=== PATIENT | male | born 1970 | race Hispanic/Latino ===

== ENCOUNTER 2020-04-21 20:35 | Emergency (ER) | payer OTHER ==
[~2020-04-21] VITALS: Ht 182.9 cm; Wt 131.5 kg
[2020-04-21] MEDS ORDERED: KETOROLAC TROMETHAMINE 30 MG/ML VIAL IV STA (21:40)
[2020-04-21] MEDS ORDERED: ACETAMINOPHEN 325 MG TAB PO ONE (21:45)
[2020-04-21] MEDS ORDERED: SODIUM CHLORIDE 0.9% 1000ML 1,000 ML IV SCH (21:45)
--- OUTSIDE RECORDS SUMMARY | 2020-04-21 21:56 | XMS REPORT | Clinical Summary ---
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
[2020-04-21] MEDS ORDERED: KETOROLAC TROMETHAMINE 30 MG/ML VIAL ONE (22:05)
[2020-04-21] MEDS ORDERED: SODIUM CHLORIDE 0.9% 1000ML 1,000 ML ONE (22:05)
[2020-04-21] MEDS ORDERED: ACETAMINOPHEN 325 MG TAB ONE (22:05)
--- NOTE | 2020-04-21 22:26 | Emergency Department Note ---
History of Present Illnes History of Present Illness Chief Complaint: Abdominal Complaints History of Present Illness This is a 49 year old obese male, with history of pre-diabetes and polycythemia, who presents with a 5 day history of progressively worsening left lower abdominal pain. The pain has become a constant dull ache, with intermittent episodes of sharp, stabbing pain, that does not radiate. Certain movements seem to make the pain a bit worse. Pt typically has a BM 3x/day, and he has only had 2 BMs daily, for the past 2 days, without blood or mucous, and no diarrhea. He denies any N/V or known fever, but he states that he felt cold last night and then broke out into a sweat. He has also not had any dysuria, hematuria or urgency. Pt denies a history of previous similar pain. He states that he had several colonoscopies @ 7-10 years ago, when he was found to be anemic, and he states that these were "normal." He denies any history of diverticulosis. 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 Required: No Onset (how long ago): day(s) Location: LLQ Quality: achy, crampy, sharp and stabbing Radiation: Reports non-radiation Severity: moderate Onset quality: gradual Duration (how long): day(s) (5) Timing of current episode: constant Progression: worsening Chronicity: new Context: Reports recent travel (works in [facility], and commutes back and forth ); Denies recent illness, Denies trauma/injury, Denies non-compliance w/ medications Relieving factors: none Exacerbating factors: none Associated symptoms: Reports fever/chills; Denies chest pain, Denies cough, Denies headaches, Denies loss of appetite, Denies malaise, Denies nausea/vomiting Treatments prior to arrival: none Past Medical/Family History Physician Review I have reviewed the patient's past medical and family history. Any updates have been documented here. Past Medical History Recent Fever: No Clinical Suspicion of Infectio: No New/Unexplained Change in Ment: No Other Medical History: Polycythemia Pre-diabetes Past Surgical History: None Social History Smoking Cessation: Never Smoker Alcohol Use: Occasional Any Illegal Drug Use: No TB Exposure/Symptoms: No Physically hurt or threatened: No Family History Family history of heart diseas: No Other Last Tetanus: < 5 years Any Pre-Existing Lines (PICC,: No Is patient up to date on immun: Yes Review of Systems Review of Systems Constitutional: Reports chills, Reports fever; Denies malaise, Denies weakness EENTM: Reports no symptoms Cardiovascular: Denies chest pain, Denies palpitations Respiratory: Denies cough, Denies dyspnea Gastrointestinal: Reports abdominal pain; Denies constipation, Denies diarrhea, Denies nausea, Denies vomiting Genitourinary: Denies dysuria, Denies frequency, Denies hematuria Musculoskeletal: Denies back pain, Denies joint pain, Denies joint swelling Integumentary: Denies change in color, Denies rash Neurological: Denies headache Psychological: Reports no symptoms Hematological/Lymphatic: Reports no symptoms Review of other systems: All other systems negative Physical Exam Related Data Allergies: Coded Allergies: No Known Drug Allergies (Verified Allergy, Unknown, 04/21/20) Triage Vital Signs Vital Signs Date Time Temp Pulse Resp B/P (MAP) Pulse Ox O2 Delivery O2 Flow Rate FiO2 04/21/20 20:55 100.0 100 18 145/95 97 Room Air Vital signs reviewed: Yes Physical Exam CONSTITUTIONAL Constitutional: Present well-developed, Present well-nourished, Present obese; Absent distressed, Absent ill appearing HENT HENT: Present normocephalic, Present atraumatic, Present oropharynx clear/moist, Present oropharynx normal, Present nose normal HENT L/R: Present left ext ear normal, Present right ext ear normal EYES Eyes: Reports PERRL, Reports conjunctivae normal, Reports EOM normal NECK Neck: Present ROM normal, Present supple, Present cervical adenopathy; Absent JVD PULMONARY Pulmonary: Present effort normal, Present breath sounds normal CARDIOVASCULAR Cardiovascular: Present regular rhythm, Present heart sounds normal, Present capillary refill normal, Present normal rate GASTROINTESTINAL Abdominal: Present soft, Present bowel sounds normal, Present tender (LLQ and suprapubic area ttp); Absent distension, Absent guarding, Absent rebound, Absent left CVA tenderness, Absent right CVA tenderness GENITOURINARY Genitourinary: Present exam deferred SKIN Skin: Present warm, Present dry; Absent rash MUSCULOSKELETAL Musculoskeletal: Present ROM normal; Absent tenderness NEUROLOGICAL Neurological: Present alert, Present oriented x 3, Present no gross motor or sensory deficits PSYCHOLOGICAL Psychological: Present mood/affect normal, Present judgement normal Results Laboratory Lab results reviewed: Yes Laboratory comments [place] - nl, except for Cl = 97; LFT - ALT = 63, AST = 53, GGT = 117; UA - negative except for Uro = 2.0; CBC - WBC = 11.53, H/H = 16.6/51.6; Imaging Imaging results reviewed: Yes Impressions Req #: [id number] Adm Physician: Ordered by: ELIANA FAGAN MD Report #: [id number] Location: [facility] Room/Bed: Procedure: [id number] HOPD/CT ABD/PEL WITH CONTRAST-HOPD Exam Date: 04/21/20 Exam Time: 2250 REPORT STATUS: Signed EXAM: CT Abdomen and Pelvis WITH contrast INDICATION: Left lower quadrant abdominal pain COMPARISON: None. TECHNIQUE: Abdomen and pelvis were scanned utilizing a multidetector helical scanner from the lung base to the pubic symphysis after administration of IV contrast. Coronal and sagittal reformations were obtained. Routine protocol was performed. Scan was performed when during portal venous phase. IV CONTRAST: 100 mL of Isovue 370 ORAL CONTRAST: None COMPLICATIONS: None RADIATION DOSE: Total DLP: 871 mGy*cm Estimated effective dose: (DLP x 0.015 x size factor) mSv CTDIvol has been reviewed. It is below the limits set by the Radiation Protocol Committee (RPC). Dose modulation, iterative reconstruction, and/or weight based adjustment of the mA/kV was utilized to reduce the radiation dose to as low as reasonably achievable. FINDINGS: LINES and TUBES: None. LOWER THORAX: Unremarkable HEPATOBILIARY: Enlarged hypodense liver. No focal hepatic lesions. No biliary ductal dilation. GALLBLADDER: No radio-opaque stones or sludge. No wall thickening. SPLEEN: No splenomegaly. PANCREAS: No focal masses or ductal dilatation. ADRENALS: No adrenal nodules KIDNEYS/URETERS: Kidneys enhance symmetrically. No hydronephrosis. There are simple right renal cysts. No solid mass lesions. No stones. GI TRACT: Mild sigmoid wall thickening and pericolonic fat stranding with sigmoid diverticuli. Colonic diverticulosis. Appendix is normal. PELVIC ORGANS/BLADDER: Unremarkable. LYMPH NODES: No lymphadenopathy. VESSELS: Unremarkable. PERITONEUM / RETROPERITONEUM: No free air or fluid. BONES: Unremarkable. SOFT TISSUES: Unremarkable. IMPRESSION: Acute uncomplicated sigmoid diverticulitis. Recommend referral for colonoscopy. Hepatomegaly with hepatic steatosis. Signed by: Alyse Zimmerman DO on 04/21/2020 11:18 PM Dictated By: ALYSE ZIMMERMAN DO 17 Transcribed By: SHAYLA on 04/21/202317 COPY TO: ELIANA FAGAN MD~ Assessment & Plan Medical Decision Making MDM - Take ALL antibiotics, as prescribed. Take with food, or something on your stomach. - If the antibiotics cause nausea, you may need to take Ondansetron 4 mg, approximately 30 minutes before taking the antibiotics, to help with the nausea. - Follow-up with your PCP regarding this ER visit and diagnosis and for a referral to a Funeral Director And Embalmer for a colonoscopy, once this acute infection has resolved. - Follow the dietary information provided for treatment of "acute diverticulitis," which includes a clear liquid diet for the next 24 - 48 hours, and then advance to a "low residue" diet, as your symptoms are improving. - You may take the Tylenol #3 for pain, as needed. This can cause constipation, so watch out for this, and add a stool softener or Miralax, if needed. - RETURN to the ED, if you develop persistent fever, worsening abdominal pain, or nausea and vomiting with inability to keep fluids and medications down. Assessment & Plan Final Impression: (1) Diverticulitis of sigmoid colon (2) Abdominal pain (3) Fever Depart Disposition: HOME, SELF-CARE Last Vital Signs Date Time Temp Pulse Resp B/P (MAP) Pulse Ox O2 Delivery O2 Flow Rate FiO2 04/21/20 20:55 100.0 100 18 145/95 97 Room Air Home Meds Active Scripts Acetaminophen/Codeine* (TYLENOL # 3*) 1 Ea Tab, 1-2 TAB PO Q6H PRN for pain, #20 TAB 0 Refills Prov:ELIANA FAGAN MD 04/22/20 Ondansetron (ONDANSETRON ODT) 8 Mg Tab.rapdis, 4 MG PO Q6H PRN for nausea, #30 TAB 0 Refills Prov:ELIANA FAGAN MD 04/22/20 Ciprofloxacin Hcl (CIPRO) 500 Mg Tablet, 1 TAB PO BID for infection for 10 Days, #20 TAB 0 Refills Prov:ELIANA FAGAN MD 04/22/20 Metronidazole (FLAGYL) 500 Mg Tablet, 1-2 TAB PO TID for infection for 10 Days, #30 TAB 0 Refills Prov:ELIANA FAGAN MD 04/22/20 Medications in the ED Sodium Chloride 1,000 ml @ 0 mls/hr Q0M IV Last administered on 04/21/20at 22:07; Admin Dose 1,000 MLS/HR; Start 04/21/20 at 21:45; Stop 05/21/20 at 21:44 Ketorolac Tromethamine 30 mg ONCE STAT IV Last administered on 04/21/20at 22:05; Admin Dose 30 MG; Start 04/21/20 at 21:40; Stop 04/21/20 at 21:45; Status DC Acetaminophen 975 mg ONCE ONCE PO Last administered on 04/21/20at 22:07; Admin Dose 975 MG; Start 04/21/20 at 21:45; Stop 04/21/20 at 21:46; Status DC Ketorolac Tromethamine 30 mg STK-MED ONCE .ROUTE ; Start 04/21/20 at 22:05; Stop 04/21/20 at 21:58; Status DC Acetaminophen 975 mg STK-MED ONCE .ROUTE ; Start 04/21/20 at 22:05; Stop 04/21/20 at 21:59; Status DC Sodium Chloride 1,000 ml @ ud STK-MED ONCE .ROUTE ; Start 04/21/20 at 22:05; Stop 04/21/20 at 21:59; Status DC ELIANA FAGAN MD Apr 21, 2020 22:26
[2020-04-21] MEDS ORDERED: SODIUM CHLORIDE 0.9% 50ML 50 ML ONE (22:40)
[2020-04-21] MEDS ORDERED: IOPAMIDOL 370 MG/ML 200 ML INFUS..BTL INJ ONE (22:40)
[2020-04-21 22:58] LABS: BASOPHILS # (AUTO) 0.1 (0.0-0.1); BASOPHILS % 0.5 % (0.0-1.0); EOSINOPHILS # (AUTO) 0.2 (0.0-0.4); EOSINOPHILS % 1.4 % (0.0-6.0); HEMATOCRIT 51.6 % (38.2-49.6); HEMOGLOBIN 16.6 g/dL (14.0-18.0); LYMPHOCYTES % 16.9 % (18.0-39.1); MEAN CORPUSCULAR HEMOGLOBIN 28.8 pg (28-32); MEAN CORPUSCULAR HGB CONC 32.2 g/dL (31-35); MEAN CORPUSCULAR VOLUME 89.4 fL (81-99); MONOCYTES % 8.4 % (4.4-11.3); NEUTROPHILS # (AUTO) 8.3 (2.1-6.9); NEUTROPHILS % 72.4 % (38.7-80.0); PLATELET COUNT 239 x10e3/uL (140-360); RED BLOOD COUNT 5.77 x10e6/uL (4.3-5.7); RED CELL DISTRIBUTION WIDTH 13.4 % (11.7-14.4)
--- NOTE | 2020-04-21 23:21 | Diagnostic Imaging Report ---
EXAM: CT Abdomen and Pelvis WITH contrast INDICATION: Left lower quadrant abdominal pain COMPARISON: None. TECHNIQUE: Abdomen and pelvis were scanned utilizing a multidetector helical scanner from the lung base to the pubic symphysis after administration of IV contrast. Coronal and sagittal reformations were obtained. Routine protocol was performed. Scan was performed when during portal venous phase. IV CONTRAST: 100 mL of Isovue 370 ORAL CONTRAST: None COMPLICATIONS: None RADIATION DOSE: Total DLP: 871 mGy*cm Estimated effective dose: (DLP x 0.015 x size factor) mSv CTDIvol has been reviewed. It is below the limits set by the Radiation Protocol Committee (RPC). Dose modulation, iterative reconstruction, and/or weight based adjustment of the mA/kV was utilized to reduce the radiation dose to as low as reasonably achievable. FINDINGS: LINES and TUBES: None. LOWER THORAX: Unremarkable HEPATOBILIARY: Enlarged hypodense liver. No focal hepatic lesions. No biliary ductal dilation. GALLBLADDER: No radio-opaque stones or sludge. No wall thickening. SPLEEN: No splenomegaly. PANCREAS: No focal masses or ductal dilatation. ADRENALS: No adrenal nodules KIDNEYS/URETERS: Kidneys enhance symmetrically. No hydronephrosis. There are simple right renal cysts. No solid mass lesions. No stones. GI TRACT: Mild sigmoid wall thickening and pericolonic fat stranding with sigmoid diverticuli. Colonic diverticulosis. Appendix is normal. PELVIC ORGANS/BLADDER: Unremarkable. LYMPH NODES: No lymphadenopathy. VESSELS: Unremarkable. PERITONEUM / RETROPERITONEUM: No free air or fluid. BONES: Unremarkable. SOFT TISSUES: Unremarkable. IMPRESSION: Acute uncomplicated sigmoid diverticulitis. Recommend referral for colonoscopy. Hepatomegaly with hepatic steatosis. Signed by: Celso Zimmerman DO on 04/21/2020 11:18 PM
[2020-04-21] MEDS ORDERED: CIPROFLOXACIN 400 MG/D5W 200ML 200 ML IV ONE ×2 (23:30→23:59)
[2020-04-21] MEDS ORDERED: METRONIDAZOLE 500MG/NS 100ML 100 ML IV ONE ×2 (23:30→23:59)
[2020-04-21] MEDS ORDERED: ONDANSETRON HCL INJ 2MG/ML 2ML 2 MG/ML VIAL IV STA (23:40)
[2020-04-21] MEDS ORDERED: MORPHINE SULFATE 2 MG/ML SYR 1ML IV STA (23:40)
[2020-04-22] MEDS ORDERED: FLAGYL500 MG PO (00:55)
[2020-04-22] MEDS ORDERED: CIPRO500 MG PO (00:56)
[2020-04-22] MEDS ORDERED: ONDANSETRON ODT8 MG PO (00:57)
[2020-04-22] MEDS ORDERED: TYLENOL # 31 EA PO (00:58)
[2020-04-22 02:28] VITALS: BP 140/90
[2020-04-22] MEDS ORDERED: HYDROCODONE/APAP 5MG-325MG TAB ONE (02:31)
[2020-04-22] MEDS ORDERED: HYDROCODONE/APAP 5MG-325MG TAB PO ONE (02:45)
== END 2020-04-22 02:28 | disposition home or self-care (01) ==
LOC: FSED 21:00
DX: R10.32 Left lower quadrant pain (principal); K57.32 Diverticulitis of large intestine without perforation or abscess without bleeding; R50.9 Fever, unspecified; D75.1 Secondary polycythemia
CPT/HCPCS: 36415; 74177; 80048; 80076; 85025; 96374; 99284; J0744; J1885; J7030; Q9967

== ENCOUNTER 2022-02-21 20:56 | Emergency (ER) | payer OTHER ==
[~2022-02-21] VITALS: Ht 185.4 cm; Wt 122.5 kg
[~2022-02-21 20:56] MED LIST: CIPRO500 MG PO; FLAGYL500 MG PO; ONDANSETRON ODT8 MG PO; TYLENOL # 31 EA PO
[2022-02-21] MEDS ORDERED: SODIUM CHLORIDE 0.9% 1000ML 1,000 ML IV SCH (22:15)
[2022-02-21] MEDS ORDERED: KETOROLAC TROMETHAMINE 30 MG/ML VIAL IV STA (22:23)
[2022-02-21] MEDS ORDERED: CIPROFLOXACIN 400 MG/D5W 200ML 200 ML IV ONE (22:26)
[2022-02-21] MEDS ORDERED: METRONIDAZOLE 500MG/NS 100ML 100 ML IV SCH (22:30)
[2022-02-21] MEDS ORDERED: IOPAMIDOL 370 MG/ML 100 ML INFUS..BTL INJ ONE (22:32)
[2022-02-21] MEDS ORDERED: SODIUM CHLORIDE 0.9% 1000ML 1,000 ML ONE (22:38)
[2022-02-21] MEDS ORDERED: METRONIDAZOLE 500MG/NS 100ML 100 ML IV ONE (22:38)
[2022-02-21] MEDS ORDERED: CEFTRIAXONE 1 GM VIAL ONE (23:56)
[2022-02-22] MEDS ORDERED: KETOROLAC TROME10 MG PO (00:33)
[2022-02-22] MEDS ORDERED: CEFDINIR300 MG PO (00:34)
[2022-02-22] MEDS ORDERED: PANTOPRAZOLE SO40 MG PO (00:34)
== END 2022-02-22 01:00 | disposition home or self-care (01) ==
LOC: FSED 21:07
DX: K65.4 Sclerosing mesenteritis (principal); J18.9 Pneumonia, unspecified organism; K21.9 Gastro-esophageal reflux disease without esophagitis
CPT/HCPCS: 74177; 80048; 80076; 81003; 85025; 99284; J0696; J0744; J1885; J7030; Q9967